=== PATIENT | female | born 1975 | race Caucasian/White ===

== ENCOUNTER → 2018-10-23 | Outpatient (CLI) | payer MEDICARE | LOC: LAB FS 12:37 | PROVIDERS: ATTEND Internal Medicine Nephrology | DX: E87.5 Hyperkalemia (principal) | CPT/HCPCS: 36415; 84132 ==

== ENCOUNTER → 2019-03-11 | Outpatient (CLI) | payer MEDICARE ==
[2019-03-11 12:01] LABS: CLARITY,URINE CLOUDY; COLOR,URINE YELLOW
[2019-03-11 12:02] LABS: BACTERIA,URINE MODERATE /HPF; BILIRUBIN,URINE NEGATIVE (NEGATIVE); GLUCOSE, URINE (UA) TRACE (NEGATIVE); KETONES,URINE NEGATIVE (NEGATIVE); LEUKOCYTE ESTERASE ,URINE 3+ (NEGATIVE); NITRITE,URINE NEGATIVE (NEGATIVE); PROTEIN,URINE 2+ (NEGATIVE); RBC,URINE 0-2 /HPF; WBC,URINE 50-100 /HPF
== END ==
LOC: LAB FS 11:38
PROVIDERS: ATTEND Nurse Practitioner Family
DX: R39.89 Other symptoms and signs involving the genitourinary system (principal)
CPT/HCPCS: 81000; 87088

== ENCOUNTER → 2019-03-11 | Outpatient (CLI) | payer MEDICARE ==
--- NOTE | 2019-03-11 12:21 | Diagnostic Imaging Report ---
EXAMINATION: Chest 2 views. HISTORY: BRONCHITIS. COMPARISON: None available. FINDINGS: A right pectoral ICD is in place. The lung volumes are normal. No focal consolidation is seen. No large pleural effusion or pneumothorax is seen. The cardiomediastinal silhouette is enlarged. No acute osseous abnormality is seen. IMPRESSION: 1. Cardiomegaly. No overt pulmonary edema. Dictated by: Dictated on workstation # [id number]
[2019-03-11 14:53] LABS: HEMATOCRIT 35 % (35-52); HEMOGLOBIN 12.1 G/DL (11.5-16.0); MEAN CORPUSCULAR HEMOGLOBIN 35 PG (25-34); MEAN CORPUSCULAR HGB CONC 35 G/DL (32-36); MEAN CORPUSCULAR VOLUME 102 FL (80-99)
[2019-03-11 14:54] LABS: BASOPHILS # (AUTO) 0.1 10^3/uL (0.0-0.1); BASOPHILS % (AUTO) 1 % (0-10); EOSINOPHILS # (AUTO) 0.3 10^3/uL (0.0-0.3); EOSINOPHILS % (AUTO) 3 % (0-10); LYMPHOCYTES % (AUTO) 18 % (12-44); MONOCYTES # (AUTO) 0.8 X 10^3 (0.0-1.0); MONOCYTES % (AUTO) 7 % (0-12); NEUTROPHILS # (AUTO) 7.7 X 10^3 (1.8-7.8); NEUTROPHILS % (AUTO) 71 % (42-75); PLATELET COUNT 207 10^3/uL (130-400); RED CELL DISTRIBUTION WIDTH 14.4 % (10.0-14.5)
[2019-03-11 15:30] LABS: CALCIUM 10.9 MG/DL (8.5-10.1); CREATININE SERUM 7.17 MG/DL (0.60-1.30); POTASSIUM 3.7 MMOL/L (3.6-5.0)
[2019-03-11 15:31] LABS: ALBUMIN 4.2 GM/DL (3.2-4.5); BILIRUBIN,TOTAL 0.4 MG/DL (0.1-1.0); TOTAL PROTEIN 7.6 GM/DL (6.4-8.2)
== END ==
LOC: RAD FS 11:42
PROVIDERS: ATTEND Nurse Practitioner Family
DX: J40 Bronchitis, not specified as acute or chronic (principal); I51.7 Cardiomegaly; Z95.810 Presence of automatic (implantable) cardiac defibrillator
CPT/HCPCS: 36415; 71046; 80053; 83036; 85025

== ENCOUNTER 2020-03-26 11:24 | Emergency (ER) | payer MEDICARE ==
[~2020-03-26] VITALS: Wt 80.0 kg
--- NOTE | 2020-03-26 11:37 | ED General ---
General Chief Complaint: Altered Mental Status Source of Information: Patient, EMS Exam Limitations: No Limitations History of Present Illness Date Seen by Provider: Mar 26, 2020 Time Seen by Provider: 11:35 Initial Comments 44-year-old female with past medical history significant for renal failure presents via EMS when a family member had called due to altered mental status. Patient without any significant complaint on arrival, denies recent illness, fever chills, cough or shortness of air. She does admit she hasn't been to dialysis in a while. She lives alone and EMS stated the condition of her house was very unhygienic and unkept. Very poor historian, asked if she was having any pain and she pointed to her left hip. Not sure if she has recently fallen, but has skin tear of R forearm. Allergies and Home Medications Allergies Coded Allergies: latex (Verified Allergy, Unknown, 03/26/20) Patient Home Medication List Home Medication List Reviewed: Yes Review of Systems Review of Systems Constitutional: see HPI; No chills, No dizziness, No fever; malaise, weakness Respiratory: No cough, No short of breath Cardiovascular: No chest pain, No syncope Gastrointestinal: No abdominal pain, No nausea, No vomiting Skin: lesions Past Cpjcoed-Athsqx-Doxuyc Hx Past Med/Social Hx: Reviewed Nursing Past Med/Soc Hx Physical Exam Vital Signs Vital Signs - First Documented 03/26/20 11:34 Temp 36.3 Pulse 62 Resp 23 B/P (MAP) 97/75 (82) Pulse Ox 100 O2 Delivery Room Air Capillary Refill : Height, Weight, BMI Height: '" Weight: lbs. oz. kg; BMI Method: General Appearance: No Apparent Distress, Chronically ill, Other (Poor hygiene, clothing soiled. Generalized weakness and moaning.) HEENT: PERRL/EOMI, Moist Mucous Membranes (dry) Neck: Non Tender, Supple Respiratory: Chest Non Tender, Lungs Clear, Normal Breath Sounds Cardiovascular: Regular Rate, Rhythm, No JVD Gastrointestinal: Non Tender, Soft Extremity: Normal Capillary Refill, Normal Inspection, Non Tender Neurologic/Psychiatric: Alert, No Motor/Sensory Deficits Skin: Other (few skin lesions, ulcerations: epigastric area and left chest wall) Focused Exam Lactate Level 03/26/20 11:55: Lactic Acid Level 1.02 Lactic Acid Level Laboratory Tests Test 03/26/20 11:55 Lactic Acid Level 1.02 MMOL/L (0.50-2.00) Progress/Results/Core Measures Suspected Sepsis SIRS Temperature: Pulse: Respiratory Rate: Laboratory Tests 03/26/20 11:55: White Blood Count 19.2H Blood Pressure / Mean: 03/26/20 11:55: Lactic Acid Level 1.02 Laboratory Tests 03/26/20 11:55: Creatinine 23.66H, Platelet Count 190, Total Bilirubin 0.8 Results/Orders Lab Results Laboratory Tests Test 03/26/20 11:55 03/26/20 12:15 03/26/20 13:50 Range/Units White Blood Count 19.2 H 4.3-11.0 10^3/uL Red Blood Count 3.24 L 4.35-5.85 10^6/uL Hemoglobin 10.0 L 11.5-16.0 G/DL Hematocrit 32 L 35-52 % Mean Corpuscular Volume 99 80-99 FL Mean Corpuscular Hemoglobin 31 25-34 PG Mean Corpuscular Hemoglobin Concent 31 L 32-36 G/DL Red Cell Distribution Width 18.7 H 10.0-14.5 % Platelet Count 190 130-400 10^3/uL Mean Platelet Volume 10.5 H 7.4-10.4 FL Immature Granulocyte % (Auto) 1 % Neutrophils (%) (Auto) 93 H 42-75 % Lymphocytes (%) (Auto) 2 L 12-44 % Monocytes (%) (Auto) 4 0-12 % Eosinophils (%) (Auto) 0 0-10 % Basophils (%) (Auto) 0 0-10 % Neutrophils # (Auto) 17.8 H 1.8-7.8 X 10^3 Lymphocytes # (Auto) 0.4 L 1.0-4.0 X 10^3 Monocytes # (Auto) 0.8 0.0-1.0 X 10^3 Eosinophils # (Auto) 0.0 0.0-0.3 10^3/uL Basophils # (Auto) 0.0 0.0-0.1 10^3/uL Immature Granulocyte # (Auto) 0.2 H 0.0-0.1 10^3/uL Neutrophils % (Manual) 87 % Lymphocytes % (Manual) 3 % Monocytes % (Manual) 3 % Eosinophils % (Manual) 0 % Basophils % (Manual) 0 % Metamyelocytes % 1 % Band Neutrophils 6 % Sodium Level 135 135-145 MMOL/L Potassium Level 7.2 *H 3.6-5.0 MMOL/L Chloride Level 98 98-107 MMOL/L Carbon Dioxide Level 4 *L 21-32 MMOL/L Anion Gap 33 H 5-14 MMOL/L Blood Urea Nitrogen 224 *H 7-18 MG/DL Creatinine 23.66 H 0.60-1.30 MG/DL Estimat Glomerular Filtration Rate 2 BUN/Creatinine Ratio 9 Glucose Level 88 70-105 MG/DL Lactic Acid Level 1.02 0.50-2.00 MMOL/L Calcium Level 7.1 L 8.5-10.1 MG/DL Corrected Calcium 8.0 L 8.5-10.1 MG/DL Total Bilirubin 0.8 0.1-1.0 MG/DL Aspartate Amino Transf (AST/SGOT) 16 5-34 U/L Alanine Aminotransferase (ALT/SGPT) 10 0-55 U/L Alkaline Phosphatase 308 H 40-136 U/L Troponin I < 0.30 <0.30 NG/ML Total Protein 6.3 L 6.4-8.2 GM/DL Albumin 2.9 L 3.2-4.5 GM/DL Serum Alcohol < 10 <10 MG/DL Urine Color GREEN H Urine Clarity TURBID Urine pH 8.0 5-9 Urine Specific [place] 1.015 L 1.016-1.022 Urine Protein 4+ NEGATIVE Urine Glucose (UA) NEGATIVE NEGATIVE Urine Ketones 1+ H NEGATIVE Urine Nitrite NEGATIVE NEGATIVE Urine Bilirubin NEGATIVE NEGATIVE Urine Urobilinogen 0.2 < = 1.0 MG/DL Urine Leukocyte Esterase 3+ H NEGATIVE Urine RBC (Auto) 3+ H NEGATIVE Urine RBC 5-10 H /HPF Urine WBC TNTC H /HPF Urine Squamous Epithelial Cells NONE /HPF Urine Crystals NONE /LPF Urine Bacteria LARGE H /HPF Urine Casts NONE /LPF Urine Mucus NEGATIVE /LPF Urine Culture Indicated YES Urine Opiates Screen NEGATIVE NEGATIVE Urine Oxycodone Screen NEGATIVE NEGATIVE Urine Methadone Screen NEGATIVE NEGATIVE Urine Propoxyphene Screen NEGATIVE NEGATIVE Urine Barbiturates Screen POSITIVE H NEGATIVE Ur Tricyclic Antidepressants Screen NEGATIVE NEGATIVE Urine Phencyclidine Screen NEGATIVE NEGATIVE Urine Amphetamines Screen POSITIVE H NEGATIVE Urine Methamphetamines Screen NEGATIVE NEGATIVE Urine Benzodiazepines Screen NEGATIVE NEGATIVE Urine Cocaine Screen POSITIVE H NEGATIVE Urine Cannabinoids Screen NEGATIVE NEGATIVE My Orders Orders - ROVENSTINE,PEG L DO Ed Iv/Invasive Line Start (03/26/20 11:35) Alcohol (03/26/20 11:35) Cbc With Automated Diff (03/26/20 11:35) Comprehensive Metabolic Panel (03/26/20 11:35) Drug Screen Stat (Urine) (03/26/20 11:35) Lactic Acid Analyzer (03/26/20 11:35) Troponin I Fs (03/26/20 11:35) Urinalysis (03/26/20 11:35) Pelvis (Ap) (03/26/20 11:35) Chest 1 View Ap/Pa Only (03/26/20 11:35) Manual Differential (03/26/20 11:55) Ns Iv 500 Ml (Sodium Chloride 0.9%) (03/26/20 12:15) Blood Culture (03/26/20 12:25) Ns Iv 500 Ml (Sodium Chloride 0.9%) (03/26/20 12:45) Ceftriaxone For Iv Use (Rocephin For I (03/26/20 12:45) Albert Cath (03/26/20 12:57) Ekg Tracing (03/26/20 12:59) Calcium Gluconate 10% Inj (Calcium Glu (03/26/20 13:00) Insulin (Regular) Human (Novolin R (Per (03/26/20 13:00) D50w (Emergency) Syringe (Dextrose 50% 5 (03/26/20 13:00) Coronavirus Sars-Cov-2 So 2019 (03/26/20 13:06) Urine Culture (03/26/20 12:15) Sodium Bicarbonate 8.4% Syr (Sodium Bica (03/26/20 13:20) Blood Culture (03/26/20 12:40) D5w 1000 Ml Iv Solution (Dextrose 5% Bud (03/26/20 13:38) Medications Given in ED Current Medications Medications Dose Ordered Sig/Ignacio Route Start Time Stop Time Status Last Admin Dose Admin Calcium Gluconate 4.65 meq ONCE ONCE IV 03/26/20 13:00 03/26/20 13:06 DC 03/26/20 13:35 4.65 MEQ Ceftriaxone Sodium 1000 mg/ Sterile Water 10 ml @ 200 mls/hr ONCE ONCE IV 03/26/20 12:45 03/26/20 12:47 DC 03/26/20 13:41 200 MLS/HR Dextrose 50 ml ONCE ONCE IV 03/26/20 13:00 03/26/20 13:06 DC 03/26/20 13:36 50 ML Dextrose/Water 1,000 ml @ ud STK-MED ONCE .ROUTE 03/26/20 13:38 03/26/20 13:41 DC 03/26/20 14:00 500 MLS/HR Insulin Human Regular 10 unit ONCE ONCE SC 03/26/20 13:00 03/26/20 13:06 DC 03/26/20 13:36 10 UNIT Sodium Bicarbonate 50 meq STK-MED ONCE .ROUTE 03/26/20 13:20 03/26/20 13:23 DC 03/26/20 13:54 50 MEQ Vital Signs/I&O 03/26/20 11:34 Temp 36.3 Pulse 62 Resp 23 B/P (MAP) 97/75 (82) Pulse Ox 100 O2 Delivery Room Air Capillary Refill : Progress Note : Progress Note Patient stable for entire ER stay w improvement in blood pressure. Fluid bolus' given, Empiric Abx for UTI as well as meds for Hyperkalemia. ECG Initial ECG Impression Time: 13:40 Initial ECG Rate: 60 Comment atrial paced rhythm, no ectopy. normal QRS without ST changes. no T wave changes Diagnostic Imaging Diagonstic Imaging: Xray Plain Films/CT/US/NM/MRI: chest Comments CORRELATION STUDY: 03/11/2019 FINDINGS: Right-sided AICD remains in place. Heart size unchanged with a rounded enlarged appearance. Vasculature overall slightly prominent. The lungs are clear with no consolidating infiltrate. There is no significant effusion or pneumothorax. IMPRESSION: 1. Stable rounded cardiac enlargement. Vasculature slightly prominent without evidence of overt failure. Dictated on workstation # [id number] Dict: 03/26/20 1207 Trans: 03/26/20 1211 [id number] Interpreted by: SINDHU GEIGER DO Electronically signed by: Departure Impression Primary Impression: Acute on chronic kidney failure Qualified Codes: N17.9 - Acute kidney failure, unspecified; N18.9 - Chronic kidney disease, unspecified; Z99.2 - Dependence on renal dialysis Additional Impressions: Hyperkalemia Severe dehydration UTI (urinary tract infection) Qualified Codes: N30.00 - Acute cystitis without hematuria Disposition: [facility] ([facility]) Condition: Stable Admissions Decision to Admit Reason: Admit from ER (General) Decision to Admit/Date: Mar 26, 2020 Time/Decision to Admit Time: 11:35 Transfer Transfer Reason: Exceeds level of care (nneds dialysis) Transfer Progress Notes Called [facility] @ 1315...no doctor acceptance @ 1355. Called [facility] @ 1320, no available ICU beds, on diversion Called [facility] ([facility], [facility], & [facility] are all on diversion) and [facility] has ICU beds available, Dr. Sharri Krishna accepts @ 1410 [facility] left the ER @ 1505 Departure-Patient Inst. Referrals: SRIDHAR BUCKNER MD (PCP) Primary Care Physician MICHEAL COLÓN APRN (Family) Primary Care Physician PEG WHITFIELD DO Mar 26, 2020 11:37
[2020-03-26 12:02] LABS: HEMATOCRIT 32 % (35-52); MEAN CORPUSCULAR HEMOGLOBIN 31 PG (25-34); MEAN CORPUSCULAR VOLUME 99 FL (80-99); WHITE BLOOD COUNT 19.2 10^3/uL (4.3-11.0)
[2020-03-26 12:03] LABS: BASOPHILS % (AUTO) 0 % (0-10); EOSINOPHILS % (AUTO) 0 % (0-10); LYMPHOCYTES # (AUTO) 0.4 X 10^3 (1.0-4.0); LYMPHOCYTES % (AUTO) 2 % (12-44); MEAN CORPUSCULAR HGB CONC 31 G/DL (32-36); MEAN PLATELET VOLUME 10.5 FL (7.4-10.4); MONOCYTES # (AUTO) 0.8 X 10^3 (0.0-1.0); MONOCYTES % (AUTO) 4 % (0-12); NEUTROPHILS # (AUTO) 17.8 X 10^3 (1.8-7.8); NEUTROPHILS % (AUTO) 93 % (42-75); PLATELET COUNT 190 10^3/uL (130-400)
--- NOTE | 2020-03-26 12:12 | Diagnostic Imaging Report ---
INDICATION: Status post fall. TECHNIQUE: Single view chest 11:52 AM. CORRELATION STUDY: 03/11/2019 FINDINGS: Right-sided AICD remains in place. Heart size unchanged with a rounded enlarged appearance. Vasculature overall slightly prominent. The lungs are clear with no consolidating infiltrate. There is no significant effusion or pneumothorax. IMPRESSION: 1. Stable rounded cardiac enlargement. Vasculature slightly prominent without evidence of overt failure. Dictated by: Dictated on workstation # [id number]
--- NOTE | 2020-03-26 12:14 | Diagnostic Imaging Report ---
INDICATION: fall w pelvic pain TECHNIQUE: AP pelvis 11:49 AM CORRELATION STUDY: None FINDINGS: Pelvis is rotated. This does limit assessment. There are rather extensive overlying monitor leads. SI joints, pubic symphysis are grossly maintained. There is question of lucency with what appears be likely nondisplaced fracture involving the anterior column of the right hemipelvis extending into the lateral right pubic ramus. Evaluation of the proximal femur is limited given rotation. Prominent vascular calcification. IMPRESSION: Suboptimal assessment of the pelvis given patient positioning. However, there does appear to be a likely nondisplaced fracture involving the anterior column of the right aspect of the pelvis. Either repeat imaging or dedicated imaging of the right hip and/or CT imaging would be recommended. Dictated by: Dictated on workstation # [id number]
[2020-03-26] MEDS ORDERED: NS IV 500 ML 500 ML IV SCH ×2 (12:15→12:45)
[2020-03-26 12:18] LABS: BAND NEUTROPHILS 6 %; BASOPHILS % (MANUAL) 0 %; EOSINOPHILS % (MANUAL) 0 %; LYMPHOCYTES % (MANUAL) 3 %; METAMYELOCYTES % 1 %; MONOCYTES % (MANUAL) 3 %; NEUTROPHILS % (MANUAL) 87 %
--- NOTE | 2020-03-26 12:41 | NUR ---
Patient's son contacted, verified patient's only allergy is latex. Son updated on patient's condition and need for admission/transfer to a facility with inpatient dialysis capabilities. Son states his first hospital preference is [facility], second is [facility].
[2020-03-26] MEDS ORDERED: cefTRIAXone FOR IV USE 1,000 MG in WATER (STERILE) FOR INJECTION 10 ML IV ONE (12:45)
[2020-03-26 12:57] LABS: SODIUM 135 MMOL/L (135-145)
[2020-03-26 12:58] LABS: POTASSIUM 7.2 MMOL/L (3.6-5.0)
[2020-03-26 12:59] LABS: CHLORIDE 98 MMOL/L (98-107)
[2020-03-26] MEDS ORDERED: inSUlin (REGULAR) HUMAN 1 UNIT/0.01 ML (CHARGE PER UNIT) SC ONE (13:00)
[2020-03-26] MEDS ORDERED: CALCIUM GLUC. 10% 4.65 MEQ/10 ML VIAL IV ONE (13:00)
[2020-03-26] MEDS ORDERED: DEXTROSE 50% 50 ML (IMS) SYR IV ONE (13:00)
[2020-03-26 13:02] LABS: ALANINE AMINOTRANSFERASE 10 U/L (0-55); ALKALINE PHOSPHATASE 308 U/L (40-136); BILIRUBIN,TOTAL 0.8 MG/DL (0.1-1.0); BUN/CREATININE RATIO 9; CALCIUM 7.1 MG/DL (8.5-10.1); CREATININE SERUM 23.66 MG/DL (0.60-1.30); GFR ESTIMATED 2; GLUCOSE 88 MG/DL (70-105); TOTAL PROTEIN 6.3 GM/DL (6.4-8.2)
[2020-03-26 13:03] LABS: ALBUMIN 2.9 GM/DL (3.2-4.5)
[2020-03-26 13:11] LABS: CARBON DIOXIDE 4 MMOL/L (21-32)
[2020-03-26 13:13] LABS: CLARITY,URINE TURBID; COLOR,URINE GREEN; GLUCOSE, URINE (UA) NEGATIVE (NEGATIVE); PROTEIN,URINE 4+ (NEGATIVE)
[2020-03-26 13:14] LABS: BACTERIA,URINE LARGE /HPF; BILIRUBIN,URINE NEGATIVE (NEGATIVE); KETONES,URINE 1+ (NEGATIVE); LEUKOCYTE ESTERASE ,URINE 3+ (NEGATIVE); NITRITE,URINE NEGATIVE (NEGATIVE); WBC,URINE TNTC /HPF
[2020-03-26 13:17] LABS: AMPHETAMINE SCREEN, URINE POSITIVE (NEGATIVE); BARBITURATE SCREEN URINE POSITIVE (NEGATIVE); BENZODIAZEPINES SCREEN URINE NEGATIVE (NEGATIVE); CANNABINOID SCREEN, URINE NEGATIVE (NEGATIVE); COCAINE SCREEN URINE POSITIVE (NEGATIVE); METHADONE STAT NEGATIVE (NEGATIVE); METHAMPHETAMINE SCREEN URINE S NEGATIVE (NEGATIVE); OPIATE SCREEN URINE NEGATIVE (NEGATIVE); OXYCODONE STAT NEGATIVE (NEGATIVE); PROPOXYPHENE STAT NEGATIVE (NEGATIVE); TRICYCLIC ANTIDEPRESSANTS SCRE NEGATIVE (NEGATIVE)
[2020-03-26] MEDS ORDERED: SODIUM BICARB 8.4% 50 MEQ/50 ML (ABBOTT) SYR ONE (13:20)
[2020-03-26] MEDS ORDERED: D5W 1000 ML IV SOLUTION 1,000 ML ONE (13:38)
[2020-03-26 15:00] VITALS: BP 93/52
== END 2020-03-26 15:00 | disposition short-term general hospital (02) ==
LOC: EDUNIT# 11:24 → ER FS 11:26
DX: N17.9 Acute kidney failure, unspecified (principal); E87.5 Hyperkalemia; N39.0 Urinary tract infection, site not specified; E86.0 Dehydration; Z91.040 Latex allergy status; Z20.828 Contact with and (suspected) exposure to other viral communicable diseases
CPT/HCPCS: 36415; 51702; 71045; 72170; 80053; 80306; 81000; 83605; 84484; 85007; 85027; 87040; 87088; 93005; 99291; G0480; U0002; 80320; 87635